=== PATIENT | female | born 1935 | race Caucasian/White ===

== ENCOUNTER 2017-06-27 07:25 | Inpatient (IN) | payer MEDICARE, OTHER ==
[~2017-06-27] VITALS: Ht 172.7 cm; Wt 100.4 kg
[~2017-06-27 07:25] MED LIST: ALBUTEROL0.63 MG/3 IH; AMARYL2 MG PO; AMLODIPINE BESYL5 MG MT; BENZONATATE100 MG; BENZONATATE100 MG PO; CORDARONE200 MG PO; DIOVAN HCT 3201 EACH; DIOVAN80 MG PO; GLIMEPIRIDE4 MG; JANUVIA100 MG PO; LASIX40 MG PO; LEVOFLOXACIN750 MG; LEVOTHYROXINE150 MCG; LIPITOR20 MG PO; METOPROLOL SUC200 MG; PRAVASTATIN SOD40 MG; PREDNISONE10 M1; RANITIDINE HCL150 M1; TOPROL XL50 MG PO; TRAMADOL-ACETAMI1 EA PO; XARELTO10 MG PO
[2017-06-27] MEDS ORDERED: PANTOPRAZOLE 40 MG 10ML VIAL IV STA (07:33)
[2017-06-27] MEDS ORDERED: SODIUM CHLORIDE 0.9% 1000ML 1,000 ML IV STA (07:33)
[2017-06-27] MEDS ORDERED: DEXTROSE 50% SYRINGE 50 ML IV PRN (07:45)
[2017-06-27] MEDS ORDERED: ONDANSETRON HCL INJ 2 MG/ML VIAL IV PRN (07:45)
[2017-06-27] MEDS ORDERED: MORPHINE SULFATE 2 MG/ML SYR IV PRN (07:45)
[2017-06-27] MEDS ORDERED: WARFARIN SODIUM1 MG PO ×2 (07:49)
[2017-06-27] MEDS ORDERED: HYDRALAZINE HCL25 MG PO (07:54)
[2017-06-27] MEDS ORDERED: CENTRUM SILVER1 EAC3 PEG (07:54)
[2017-06-27] MEDS ORDERED: CARVEDILOL3.125 MG PO (07:54)
[2017-06-27] MEDS ORDERED: POTASSIUM CHLO10 ME1 PO (07:54)
[2017-06-27] MEDS ORDERED: VITAMIN D32000 UNIT PO (07:54)
--- NOTE | 2017-06-27 08:10 | Diagnostic Imaging Report ---
EXAMINATION: CHEST SINGLE (PORTABLE) INDICATION: Possible fall. Chest pain. COMPARISON: Chest x-ray 06/25/2014 FINDINGS: AP view TUBES and LINES: None. LUNGS: Lungs are well inflated. here is perihilar interstitial opacities, consistent with interstitial edema. Enlarged main pulmonary arteries. PLEURA: No pleural effusion or pneumothorax. HEART AND MEDIASTINUM: The cardiomediastinal silhouette is unremarkable. BONES AND SOFT TISSUES: No acute osseous lesion. Soft tissues are unremarkable. UPPER ABDOMEN: No free air under the diaphragm. IMPRESSION: Interstitial edema. Signed by: Dr. Anirudh Gustafson M.D. on 06/27/2017 8:06 AM
--- NOTE | 2017-06-27 08:10 | Diagnostic Imaging Report ---
KNEE LEFT THREE VIEWS - 3 views HISTORY: Pain. Possible fall COMPARISON: None available. FINDINGS: Bones: No acute displaced fracture. Osseous alignment is within normal limits. Joints: Severe tricompartmental degenerative changes with complete loss of joint space. Soft tissues: The soft tissues appear unremarkable. 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 No discrete fractures. Signed by: Dr. Anirudh Gustafson M.D. on 06/27/2017 8:07 AM
[2017-06-27] MEDS ORDERED: CEFTRIAXONE SOD 1 GM VIAL IM ONE (08:15)
[2017-06-27 08:32] LABS: BASOPHILS % 0.4 % (0.0-1.0); EOSINOPHILS # (AUTO) 0.1 (0.0-0.4); EOSINOPHILS % 1.3 % (0.0-6.0); HEMATOCRIT 28.7 % (34.2-44.1); HEMOGLOBIN 9.1 g/dL (12.0-16.0); LYMPHOCYTES # (AUTO) 0.8 (1.0-3.2); LYMPHOCYTES % 9.2 % (18.0-39.1); MEAN CORPUSCULAR HEMOGLOBIN 29.5 pg (28-32); MEAN CORPUSCULAR HGB CONC 31.7 g/dL (31-35); MEAN CORPUSCULAR VOLUME 93.2 fL (81-99); MONOCYTES # (AUTO) 0.5 (0.2-0.8); MONOCYTES % 5.7 % (4.4-11.3); NEUTROPHILS # (AUTO) 7.5 (2.1-6.9); NEUTROPHILS % 82.7 % (38.7-80.0); PLATELET COUNT 435 x10e3/uL (140-360); RED BLOOD COUNT 3.08 x10e6/uL (3.6-5.1); RED CELL DISTRIBUTION WIDTH 16.3 % (11.7-14.4)
[2017-06-27 08:34] LABS: BILIRUBIN,URINE 1+ (NEGATIVE); KETONES,URINE NEGATIVE (NEGATIVE); LEUKOCYTE ESTERASE ,URINE TRACE (NEGATIVE); URINE UROBILINOGEN 1 mg/dL (0.2 - 1)
[2017-06-27 08:35] LABS: CLARITY,URINE HAZY (CLEAR); COLOR,URINE YELLOW (YELLOW); NITRITE,URINE POSITIVE (NEGATIVE); PROTEIN,URINE DIPSTICK 2+ (NEGATIVE)
[2017-06-27 08:46] LABS: INR 2.98; PROTHROMBIN TIME 29.1 seconds (11.9-14.5)
[2017-06-27 08:50] LABS: BACTERIA,URINE MANY /HPF; EPITHELIAL CELLS,URINE RARE /LPF; RBC,URINE 0-5 /HPF (0-5)
[2017-06-27 08:55] LABS: ALANINE AMINOTRANSFERASE 31 IU/L (0-55); ALBUMIN 2.8 g/dL (3.5-5.0); ALBUMIN/GLOBULIN RATIO 0.7 (0.8-2.0); ALKALINE PHOSPHATASE 87 IU/L (40-150); ANION GAP 13.8 mmol/L (8-16); BLOOD UREA NITROGEN 14 mg/dL (7-26); BUN/CREATININE RATIO 11 (6-25); CALCIUM 8.4 mg/dL (8.4-10.2); CARBON DIOXIDE 27 mmol/L (22-29); CHLORIDE 101 mmol/L (98-107); CREATINE KINASE 171 IU/L (29-168); CREATININE, SERUM 1.28 mg/dL (0.57-1.11); EST GLOMERULAR FILTRATION RATE 40 ML/MIN (60-); MAGNESIUM 1.9 MG/DL (1.3-2.1); POTASSIUM 3.8 mmol/L (3.5-5.1); SODIUM 138 mmol/L (136-145)
[2017-06-27 08:56] LABS: LIPASE < 4 U/L (8-78)
[2017-06-27 08:57] LABS: GLUCOSE 39 mg/dL (74-118)
[2017-06-27] MEDS ORDERED: PANTOPRAZOLE 40 MG 10ML VIAL IV SCH (09:00)
[2017-06-27 09:14] LABS: THYROID STIMULATING HORMONE 1.852 uIU/mL (0.350-4.940)
--- OUTSIDE RECORDS SUMMARY | 2017-06-27 09:28 | XMS REPORT ---
Author Author [facility] Address Unknown Phone Unavailable Care Team Providers Care Mathematician Name Role Phone WAI WATT Unavailable Unavailable Problems This patient has no known problems. Allergies, Adverse Reactions, Alerts This patient has no known allergies or adverse reactions. Medications This patient has no known medications. Results Test Description Test Time Test Comments Text Results Atomic Results Result Comments CHEST SINGLE (PORTABLE) [place] [address] Patient Name: DOUG GRIMES MR #: [id number] : 1935 Age/Sex: 82/F Req #: [id number] Adm Physician: Ordered by: WAI WATT MD, MD Report #: [id number] Location: ER Room/Bed: Procedure: [id number] DX/CHEST SINGLE (PORTABLE) Exam Date: Exam Time: REPORT STATUS: Signed EXAMINATION: CHEST SINGLE (PORTABLE) INDICATION: Possible fall. Chest pain. COMPARISON: Chest x-ray 06/25/2014 FINDINGS: AP view TUBES and LINES: None. LUNGS: Lungs are well inflated. here is perihilar interstitial opacities, consistent with interstitial edema. Enlarged main pulmonary arteries. PLEURA: No pleural effusion or pneumothorax. HEART AND MEDIASTINUM: The cardiomediastinal silhouette is unremarkable. BONES AND SOFT TISSUES: No acute osseous lesion. Soft tissues are unremarkable. UPPER ABDOMEN: No free air under the diaphragm. IMPRESSION: Interstitial edema. Signed by: Dr. Warren Gustafson M.D. on 2017 8:06 AM Dictated By: WARREN GUSTAFSON MD 5 Transcribed By: ETIENNE on 06/27/17805 COPY TO: WAI WATT KNEE LEFT THREE VIEWS [place] [address] Patient Name: DOUG GRIMES MR #: [id number] : 1935 Age/Sex: 82/F Req #: [id number] Adm Physician: Ordered by: WAI WATT MD, MD Report #: [id number] Location: ER Room/Bed: Procedure: [id number] DX/KNEE LEFT THREE VIEWS Exam Date: Exam Time: REPORT STATUS: Signed KNEE LEFT THREE VIEWS - 3 views HISTORY: Pain. Possible fall COMPARISON: None available. FINDINGS: Bones: No acute displaced fracture. Osseous alignment is within normal limits. Joints: Severe tricompartmental degenerative changes with complete loss of joint space. Soft tissues: The soft tissues appear unremarkable. 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 No discrete fractures. Signed by: Dr. Warren Gustafson M.D. on 06/27/2017 8:07 AM Dictated By: WARREN GUSTAFSON MD 6 Transcribed By: ETIENNE on 06/27/17806 COPY TO: WAI WATT
--- NOTE | 2017-06-27 09:54 | Diagnostic Imaging Report ---
Exams: Head and cervical spine CTs without IV contrast History: Trauma, fall Comparison studies: None Technique: Axial images were obtained from the brain and cervical spine. Coronal and sagittal images reconstructed from the axial data. Intravenous contrast: None Findings: Head CT: Scalp: No abnormalities. Bones: No fractures, blastic or lytic lesions. Extra-axial spaces: No masses. No fluid collections. Brain sulci: Mildly prominent. Ventricles: Mild compensatory dilatation. No hydrocephalus. Parenchyma: No mass, acute hemorrhage or acute cortical vascular insults. There is a chronic cortical-subcortical insult with encephalomalacia and gliosis along the subcentral gyrus (inferior junction of pre and postcentral gyrus) which extends to the supramarginal gyrus of the left inferior parietal lobule in the left MCA territory. Additional cortical-subcortical insult in the left superior parietal lobule in the distal left MCA territory. Ill-defined hypodensities in the supratentorial white matter are nonspecific most compatible with chronic small vessel ischemic changes. Sellar/suprasellar region: No abnormalities. Craniocervical junction: The foramen magnum is patent. No Chiari one malformation. Cervical spine CT: Fractures: None. Soft tissues: No gross acute abnormalities. Atlantoaxial articulation: Intact. Alignment: Straightened cervical curvature may be positional. Approximately 2 mm anterolisthesis of C4 on C5 is most likely degenerative in etiology. No acute subluxations. Cervicomedullary junction: No abnormalities. The foramen magnum is patent. Vertebrae: No infection or neoplasm. Degenerative changes: Moderate degenerative changes at the atlantodental joint. Mildly degenerated disks from C2 to C6 and at C7-T1. Moderately degenerated disc at C6-C7. Disc osteophyte complexes at C5-C6 and at C6-C7 indent the thecal sac but do not result in significant canal stenosis. Multilevel advanced facet arthrosis. Multilevel foraminal stenosis due to uncovertebral and facet arthrosis (mild left at C2-C3, moderate bilaterally at C3-C4, at C5-C6 and at C6-C7 is present. Moderate bilateral C4-C5 foraminal stenosis due to listhesis, uncovertebral arthrosis and moderate bilateral facet arthrosis. Incidental findings: Calcified atherosclerosis in the carotid siphons, intradural vertebral arteries and at the cervical carotid bulbs. Multiple surgical clips in the thyroid bed presumably related to thyroidectomy. Nonspecific partially calcified small nodule in the right thyroid bed may represent residual thyroid tissue/nodule. Nonspecific 2 mm right upper lobe subpleural nodule. IMPRESSION: Head CT: 1. No acute abnormalities. 2. Mild generalized volume loss. 3. Moderate chronic small vessel ischemic changes. 4. Chronic left subcortical subcentral/inferior parietal and left superior parietal insults. Cervical spine CT: 1. No cervical spine fracture or acute subluxation. 2. Multilevel degenerative changes as described. 3. Cannot likely evaluate ligament, spinal cord and or vascular abnormalities on the basis of this examination. Signed by: Dr. Sami Rene M.D. on 06/27/2017 9:51 AM
--- NOTE | 2017-06-27 10:02 | Diagnostic Imaging Report ---
EXAM: CT Chest, Abdomen and Pelvis WITHOUT contrast INDICATION: \S\FALL COMPARISON: None. TECHNIQUE: Chest, abdomen and pelvis were scanned utilizing a multidetector helical scanner from the lung apex to the pubic symphysis without administration of IV contrast. Absence of intravenous contrast decreases sensitivity for detection of focal lesions and vascular pathology. Coronal and sagittal reformations were obtained. Routine protocol was performed. IV CONTRAST: None ORAL CONTRAST: Water COMPLICATIONS: None RADIATION DOSE: Total DLP: 1000.3 mGy*cm Estimated effective dose: (DLP x 0.015 x size factor) mSv CTDIvol has been reviewed. It is below the limits set by the Radiation Protocol Committee (RPC). FINDINGS: LINES and TUBES: None. LUNGS AND AIRWAYS: Mild interlobular septal thickening predominantly in the lung apices. Patchy groundglass opacities which may represent actual groundglass opacities versus air trapping. There is likely a component of air trapping in the lower lobes. Mild bronchial wall thickening. Multifocal scattered tiny pulmonary nodules and groundglass nodules in bilateral lungs predominantly in the upper lobes. Focal atelectasis in the left lower lobe (series 4 image 68) PLEURA: Tiny left pleural effusion. HEART AND MEDIASTINUM: The thyroid gland is normal. No mediastinal, hilar or axillary lymphadenopathy. The heart is normal in size. There is no pericardial effusion. There are significant atherosclerotic calcifications in the aorta and coronary arteries. HEPATOBILIARY: No focal hepatic lesions. No biliary ductal dilation. GALLBLADDER: Layering sludge No wall thickening. SPLEEN: No splenomegaly. Calcified granuloma in the spleen. PANCREAS: No focal masses or ductal dilatation. ADRENALS: No adrenal nodules KIDNEYS/URETERS: Atrophy of bilateral kidneys with vascular ossifications. No hydronephrosis. No cystic or solid mass lesions. No stones. GI TRACT: No abnormal distention, wall thickening, or evidence of bowel obstruction. Tiny sliding hiatal hernia. Appendix is normal. PELVIC ORGANS/BLADDER: Rivera catheter is in place. Bladder is decompressed with air related to Rivera catheter placement. Uterus is absent. Both ovaries are not visualized. LYMPH NODES: No lymphadenopathy. VESSELS: There is severe atherosclerotic disease in the aorta and major arterial branches. PERITONEUM / RETROPERITONEUM: No free air or fluid. BONES: Severe degenerative changes in the lumbar spine. * Inferior wedging of T12 vertebral body. * Age indeterminate, likely more acute compression deformity of L1 vertebral body. * Severe disc space narrowing at L2-L3. * Compression deformity in the superior endplate of L4. * Trace grade 1 anterolisthesis of L5 on S1 secondary to facet arthropathy. SOFT TISSUES: There is a fat containing umbilical hernia. Soft tissue density in the posterior subcutaneous tissue abutting the epidermis, consistent with epidermal inclusion cyst. A 0.7 cm (image 27), and 1.0 cm (image 28). IMPRESSION: 1. Multifocal nodules and groundglass nodules in lungs, likely pneumonia. 2. Age-indeterminate, likely more acute compression deformity of L1 body. MRI lumbar spine without contrast can be performed to evaluate for acuity. 3. Gallbladder stones/sludge. No acute cholecystitis. 4. Tiny left pleural effusion. Signed by: Dr. Anirudh Gustafson M.D. on 06/27/2017 9:59 AM
[2017-06-27] MEDS ORDERED: CEFTRIAXONE SOD 1 GM VIAL IM SCH (11:00)
[2017-06-27] MEDS: INSULIN LISPRO 100 UNIT/1 ML 3ML VIAL SQ SCH ×3 (11:30→20:41)
[2017-06-27 11:39] VITALS: BP 147/62
[2017-06-27] MEDS ORDERED: AZITHROMYCIN 500MG/NS 250 ML 250 ML IV SCH ×2 (12:30→14:30)
[2017-06-27 13:27] VITALS: BP 147/62
[2017-06-27 13:35] VITALS: BP 147/62
[2017-06-27] MEDS: CEFTRIAXONE SOD 1 GM VIAL IV SCH (15:00)
[2017-06-27] MEDS: TRAMADOL HCL 50 MG TAB PO PRN ×2 (15:01→21:09)
[2017-06-27 15:39] VITALS: BP 143/65
[2017-06-27 16:20] LABS: CREATINE KINASE MB 12.3 ng/mL (0-5.0)
[2017-06-27] MEDS: HYDRALAZINE HCL 25 MG TAB PO SCH ×2 (18:50→21:09)
[2017-06-27] MEDS: DOXYCYCLINE HYCLATE TABLET 100 MG TAB PO SCH (18:51)
[2017-06-27] MEDS: CARVEDILOL 12.5 MG TAB PO SCH (18:51)
[2017-06-27 20:00] VITALS: BP 125/65
[2017-06-27] MEDS ORDERED: WARFARIN SOD 1 MG TAB PO SCH (21:00)
[2017-06-27 21:03] VITALS: BP 125/65
[2017-06-27] MEDS: ATORVASTATIN 40 MG TAB PO SCH (21:09)
[2017-06-27] MEDS: MORPHINE SULFATE 2 MG/ML SYR IV PRN (23:27)
[2017-06-28] VITALS (7 sets, daily range): BP systolic 118–149; BP diastolic 58–69
[2017-06-28 01:49] LABS: CREATINE KINASE MB 6.2 ng/mL (0-5.0)
[2017-06-28] MEDS: TRAMADOL HCL 50 MG TAB PO PRN ×3 (03:22→23:29)
[2017-06-28] MEDS: MORPHINE SULFATE 2 MG/ML SYR IV PRN ×2 (06:12→11:30)
[2017-06-28] MEDS: INSULIN LISPRO 100 UNIT/1 ML 3ML VIAL SQ SCH ×4 (07:30→21:29)
[2017-06-28 07:34] LABS: BASOPHILS # (AUTO) 0.1 (0.0-0.1); BASOPHILS % 0.9 % (0.0-1.0); EOSINOPHILS # (AUTO) 0.3 (0.0-0.4); EOSINOPHILS % 3.3 % (0.0-6.0); HEMATOCRIT 27.7 % (34.2-44.1); HEMOGLOBIN 8.4 g/dL (12.0-16.0); LYMPHOCYTES # (AUTO) 2.1 (1.0-3.2); LYMPHOCYTES % 27.2 % (18.0-39.1); MEAN CORPUSCULAR HEMOGLOBIN 28.9 pg (28-32); MEAN CORPUSCULAR HGB CONC 30.3 g/dL (31-35); MEAN CORPUSCULAR VOLUME 95.2 fL (81-99); MONOCYTES # (AUTO) 0.9 (0.2-0.8); MONOCYTES % 11.2 % (4.4-11.3); NEUTROPHILS # (AUTO) 4.4 (2.1-6.9); PLATELET COUNT 396 x10e3/uL (140-360); RED BLOOD COUNT 2.91 x10e6/uL (3.6-5.1); RED CELL DISTRIBUTION WIDTH 16.8 % (11.7-14.4)
[2017-06-28 07:56] LABS: INR 3.19; PROTHROMBIN TIME 30.7 seconds (11.9-14.5)
[2017-06-28 07:57] LABS: PARTIAL THROMBOPLASTIN TIME 66.2 seconds (23.8-35.5)
[2017-06-28 08:09] LABS: ALBUMIN 2.3 g/dL (3.5-5.0); ALBUMIN/GLOBULIN RATIO 0.7 (0.8-2.0); ANION GAP 11.7 mmol/L (8-16); CALCIUM 7.9 mg/dL (8.4-10.2); CHOL/HDL RATIO 2.7 (3.0-3.6); CREATININE, SERUM 1.29 mg/dL (0.57-1.11); MAGNESIUM 1.4 MG/DL (1.3-2.1); POTASSIUM 3.7 mmol/L (3.5-5.1)
[2017-06-28] MEDS: LEVOTHYROXINE SODIUM 100 MCG TAB PO SCH (08:23)
[2017-06-28] MEDS: HYDRALAZINE HCL 25 MG TAB PO SCH ×3 (08:25→21:23)
[2017-06-28] MEDS: AMIODARONE HCL 200 MG TAB PO SCH (08:25)
[2017-06-28] MEDS: CARVEDILOL 12.5 MG TAB PO SCH ×2 (08:25→16:34)
[2017-06-28] MEDS: DOXYCYCLINE HYCLATE TABLET 100 MG TAB PO SCH ×2 (08:25→16:33)
[2017-06-28] MEDS ORDERED: POTASSIUM CHLORIDE 20 MEQ TAB CR PO SCH (13:41)
[2017-06-28] MEDS: CEFTRIAXONE SOD 1 GM VIAL IV SCH (14:29)
[2017-06-28] MEDS: FUROSEMIDE INJ 10 MG/ML 4 ML VIAL IV SCH (14:29)
[2017-06-28] MEDS: ATORVASTATIN 40 MG TAB PO SCH (21:23)
[2017-06-29] MEDS: MORPHINE SULFATE 2 MG/ML SYR IV PRN ×2 (05:41→22:38)
[2017-06-29 06:39] LABS: BASOPHILS # (AUTO) 0.1 (0.0-0.1); BASOPHILS % 0.7 % (0.0-1.0); EOSINOPHILS # (AUTO) 0.3 (0.0-0.4); EOSINOPHILS % 2.9 % (0.0-6.0); HEMATOCRIT 26.5 % (34.2-44.1); HEMOGLOBIN 8.2 g/dL (12.0-16.0); LYMPHOCYTES # (AUTO) 1.7 (1.0-3.2); LYMPHOCYTES % 19.3 % (18.0-39.1); MEAN CORPUSCULAR HEMOGLOBIN 29.2 pg (28-32); MEAN CORPUSCULAR HGB CONC 30.9 g/dL (31-35); MEAN CORPUSCULAR VOLUME 94.3 fL (81-99); MONOCYTES # (AUTO) 0.8 (0.2-0.8); MONOCYTES % 9.3 % (4.4-11.3); NEUTROPHILS # (AUTO) 5.8 (2.1-6.9); NEUTROPHILS % 67.2 % (38.7-80.0); PLATELET COUNT 371 x10e3/uL (140-360); RED BLOOD COUNT 2.81 x10e6/uL (3.6-5.1); RED CELL DISTRIBUTION WIDTH 16.8 % (11.7-14.4)
[2017-06-29 06:45] LABS: INR 2.1; PROTHROMBIN TIME 22.1 seconds (11.9-14.5)
[2017-06-29 07:06] LABS: ANION GAP 12.2 mmol/L (8-16); CALCIUM 7.9 mg/dL (8.4-10.2); CREATININE, SERUM 1.49 mg/dL (0.57-1.11); POTASSIUM 4.2 mmol/L (3.5-5.1)
[2017-06-29] MEDS: INSULIN LISPRO 100 UNIT/1 ML 3ML VIAL SQ SCH ×4 (07:30→20:02)
[2017-06-29 07:41] VITALS: BP 163/70
[2017-06-29] MEDS: LEVOTHYROXINE SODIUM 100 MCG TAB PO SCH (09:17)
[2017-06-29] MEDS: FUROSEMIDE INJ 10 MG/ML 4 ML VIAL IV SCH (09:17)
[2017-06-29] MEDS: AMIODARONE HCL 200 MG TAB PO SCH (09:18)
[2017-06-29] MEDS: DOXYCYCLINE HYCLATE TABLET 100 MG TAB PO SCH ×2 (09:19→17:55)
[2017-06-29] MEDS: HYDRALAZINE HCL 25 MG TAB PO SCH ×3 (09:29→20:03)
[2017-06-29] MEDS: VALSARTAN 80 MG TAB PO SCH (09:30)
[2017-06-29] MEDS: CARVEDILOL 12.5 MG TAB PO SCH ×2 (09:30→17:55)
[2017-06-29 11:26] VITALS: BP 153/65
--- NOTE | 2017-06-29 11:37 | Consultation ---
DATE OF CONSULTATION: June 28, 2017 ELECTROPHYSIOLOGY CONSULT REFERRING PHYSICIAN: Dr. Graff REASON FOR CONSULTATION: Syncope, sick sinus syndrome. HISTORY OF PRESENT ILLNESS: This is an 82-year-old woman with history of hypertension and history of chronic cardiomyopathy with ejection fraction of 25%. The patient states she has been cathed in the past and was found with no blockages. No records are available at this time. She has had paroxysmal atrial fibrillation and states she feels heart racing episodes when the heart rate goes up to 120s and 130s beats per minute. She has been on beta radames for this. However, she recently started having syncope. She had 3 syncopal episodes over the last 3 weeks. She had pretty significant hit on her head with soft-tissue injury at this time. She states she was at home when all of a sudden she blacked out. The next thing she remembers was getting up from the floor. There were no preceding symptoms. The patient has noticed the heart rate sometimes going down to the 40s and 50s. On admission, the patient was in atrial fibrillation with rapid ventricular response. However, she converted to sinus and has been having episodes of sinus bradycardia associated with some dizziness. No recurrence of syncope during the hospital stay. The patient denies chest pain. She has been taking Coumadin for years. REVIEW OF SYSTEMS CONSTITUTIONAL: Negative. CARDIOVASCULAR: As per HPI. RESPIRATORY: Negative. ABDOMEN: Negative. GASTROINTESTINAL: Negative. GENITOURINARY: Negative. MUSCULOSKELETAL: Negative. EYES: Negative. ENT: Negative. ALLERGY AND IMMUNOLOGY: Negative. PSYCHIATRY: Negative. PAST MEDICAL HISTORY: Atrial fibrillation and cardiomyopathy. SURGICAL HISTORY: Negative. FAMILY HISTORY: No premature coronary artery disease. SOCIAL HISTORY: No smoking, alcohol or illicit drugs. PHYSICAL EXAMINATION VITAL SIGNS: Blood pressure 120s/60s, pulse 50, respirations 20, O2 sat 98%. GENERAL: No acute distress. HEENT: Moist mucous membranes. CARDIOVASCULAR: Regular-regular. RESPIRATORY: Clear to auscultation. GASTROINTESTINAL: Abdomen is soft, nontender. EXTREMITIES: 2+ distal pulses. NEUROLOGIC: No focal deficit. SKIN: Some bruises on her face. PSYCHIATRY: Normal thought process. EKG: Sinus bradycardia, 1st-degree AV block, intraventricular conduction defect. IMPRESSION 1. Sick sinus syndrome, highly symptomatic. She has had syncope that appears to be secondary to primary arrhythmia, most likely some bradycardia or sinus pauses given the history and current findings with some episodes of bradycardia. 2. Paroxysmal atrial fibrillation. 3. History of cardiomyopathy. RECOMMENDATIONS 1. I had a long discussion with the patient. She has a strong indication for pacing, given her sick sinus syndrome difficult to manage, and she goes tachycardic from the atrial fibrillation and then bradycardic. There are no reversible causes, and pacing is indicated. Also, due to her cardiomyopathy, will await official result from the repeat echocardiogram. In case the ejection fraction is low, then she will meet criteria for ICD. If the ejection fraction has normalized, then it will be a pacemaker. 2. The procedure was explained in detail with benefits and risks. The patient voices an understanding and wishes to proceed either way. 3. We will plan for a dual-chamber pacemaker if the ejection fraction is greater than 35% or dual-chamber ICD if the ejection fraction is less than 35%. 4. Will wait and follow the INR to come down. Will hold warfarin. Thank you for letting us participate in Ms. [facility]. Job#: [id number]
[2017-06-29] MEDS: TRAMADOL HCL 50 MG TAB PO PRN ×2 (12:45→19:47)
[2017-06-29 15:28] VITALS: BP 158/67
[2017-06-29] MEDS: CEFTRIAXONE SOD 1 GM VIAL IV SCH (15:53)
[2017-06-29 18:43] VITALS: BP 158/67
--- NOTE | 2017-06-29 19:04 | Consultation ---
DATE OF CONSULTATION: June 27, 2017 CARDIOLOGY CONSULTATION REASON FOR CONSULTATION: Syncope, collapse with injury. HISTORY OF PRESENT ILLNESS: Ms. Yoon is an 82-year-old lady with past medical history of hypertension; type 2 diabetes; hypercholesterolemia; history of atrial fibrillation, first diagnosed 3 years ago, on chronic anticoagulation therapy with Coumadin and also known systolic heart failure with EF of about 20% to 25% on previous echocardiogram in this institution 3 years ago. Patient does see Dr. Zhao as her primary group exercise class instructor, however, she is not attune to what her medical problems are per se. She gets a checkup every 6 months where he runs echocardiogram, stress test, and so forth with last ischemic evaluation about a year and a half ago and nothing was said, so she assumed that everything was okay. In terms of her heart function, she is unaware that she has had weak heart function in the past. She has never been discussed for device therapy. She had 3 passing out episodes in the past 2 months. First episode was 8 weeks ago where she collapsed all of a sudden without any prodromal warning. She found herself on the floor injured with bruising, but luckily no breaks. She had a second episode 4 days ago where she landed on her left side and daughter came over help her up. Her last episode was yesterday again without any prodrome, however, this time around was unable to get up. ER services came to help the patient out. Patient denies any subjective palpitations. She does not feel her onset/offset of atrial fibrillation. I am amusing that her atrial fibrillation is paroxysmal because she is on rhythm control strategy with amiodarone. Patient denies any chest pain or discomfort. She reports chronic class 3 to 4 dyspnea and is not very active. She utilizes a walking aid for the past 6 months with a walker on account of severe bilateral ankle arthritis. She has had falls before, but this is quite different as she completely looses consciousness and awakes on the floor with injury. Currently, she does report some abrasions over the left side of her body as well as her face from her most recent fall. We had a long discussion today in terms of differential diagnosis. PAST MEDICAL HISTORY: 1. Hypertension, essential. 2. Type 2 diabetes. 3. Hypercholesterolemia. 4. Atrial fibrillation, diagnosed at least 3 years ago, on chronic anticoagulation therapy. 5. Systolic heart failure with EF of about 20% to 25% on last echocardiogram 3 years ago in this institution and regimen suggests CHF systolic regimen. 6. Hypothyroidism/goiter with history of thyroidectomy. 7. Chronic low back pain with prior history of compression fractures. 8. Osteoporosis. PAST SURGICAL HISTORY: 1. History of thyroidectomy 7 years ago. 2. History of hysterectomy and bladder suspension surgery 15 years ago. FAMILY HISTORY: Mother in her late 70s due to some sort of leukemia. Father at the age of 39 from a plane crash. Has diabetes running in her family, but denies any family history of coronary artery disease. SOCIAL HISTORY: She is a former smoker, quit at the age of 41. Denies any alcohol or illicit drug use. ALLERGIES: INCLUDE CODEINE AND PENICILLIN. HOME MEDICATIONS: Includes: 1. Amiodarone 200 mg daily. 2. Norvasc 5 mg daily. 3. Lipitor 40 mg nightly. 4. Coreg 6.25 mg b.i.d. 5. Lasix 40 mg daily. 6. Glimepiride 4 mg daily. 7. Hydralazine 25 mg t.i.d. 8. Synthroid 150 mcg daily. 9. Vitamin D tablet daily. 10. Multivitamin tablet daily. 11. Potassium 10 mEq daily. 12. Diovan 80 mg daily. 13. Coumadin 2.5 mg daily. REVIEW OF SYSTEMS: GENERAL: Denies any fevers, chills, or any weight changes. HEENT: No headaches, visual complaints, sore throat, stuffy nose. She does have some bruising on her face. RESPIRATORY: Denies any pleuritic chest pain. Has exertional dyspnea that is chronic, class 3 to 4. CARDIOVASCULAR: As per HPI. GI: Denies any abdominal pain, bright red blood per rectum, melena, hematemesis. : Denies any dysuria. Does have urinary frequency and slight incontinence. MUSCULOSKELETAL: Positive for chronic low back pain and stiff ankles and arthritis in her knees. ENDOCRINE: Positive for diabetes and hypothyroidism. NEUROLOGIC: Denies any focal weakness on 1 side of her body or another, but has had the falls as noted above. Has some peripheral neuropathy symptoms. Review of systems negative otherwise mentioned. PHYSICAL EXAMINATION: VITAL SIGNS: Height of 68 inches, weight of 221 pounds, BMI is 33.6. Temperature of 98.0, pulse of 116, respiratory rate 20, blood pressure 143/65, O2 sat 95% on room air. GENERAL: This is a well-nourished, obese lady, who is currently in no apparent distress. HEENT: Pupils are equal, round, and reactive to light. Extraocular movements are intact. Oropharynx is clear. There is some bruising on the right side of her face. NECK: No elevation of jugular venous pulsation. No carotid bruits. CARDIOVASCULAR: Irregularly irregular rate and rhythm. Normal S1 and S2. Soft 1/6 systolic murmur at the left lower sternal border. LUNGS: Showed decreased bibasilar breath sounds and fair lung entry and some trivial crackles, scattered. ABDOMEN: Soft, nontender, obese. Normoactive bowel sounds. There are old surgical scars. BACK: No costovertebral angle tenderness. EXTREMITIES: Warm with extensive left lateral thigh bruising, 1 to 2+ bilateral pitting edema up to the knees and absent pedal pulses. NEUROLOGIC: Cranial nerves II through XII are intact. Strength seems to be preserved in all 4 extremities. LABS: White count 9.1, hemoglobin 9.1, hematocrit 28.7, platelets of 435,000. Sodium 138, potassium 3.8, chloride 101, bicarb 27, BUN 14, creatinine 1.3, glucose of 214. AST 50, ALT 31, alk phos 87, total protein 7.0, albumin of 2.8. BNP is 363. Troponin I from 0.014 to 0.018. INR is 2.98. UA showed 6 to 10 white cells. Chest x-ray showed some mild interstitial edema. Left knee x-rays showed DJD changes, but no fractures. Chest CT showed probably some pulmonary edema type changes. There is a L1 compression fracture, gallbladder stones and sludge, but no acute cholecystitis. Cervical/C-spine showed DJD throughout. Brain CT showed microvascular ischemic changes and chronic left subcortical, subcentral, inferior parietal, left superior parietal insults. Carotid duplex reviewed showing bilateral 16% to 49% carotid artery stenosis. EKG revealed normal sinus rhythm, first-degree AV block, and nonspecific ST-T-wave changes. DIAGNOSES: 1. Repetitive syncope and collapse without any prodrome in a lady with paroxysmal atrial fibrillation, highly suspicious of conduction system disease type process given symptom complex. 2. Kvqyi-kh-uakaurr decompensated systolic heart failure with mild volume overload. 3. Hypertension. 4. Hypercholesterolemia. 5. Type 2 diabetes. 6. Former smoker. 7. Obesity. 8. Injury, soft tissue, diffuse. 9. High probability of coronary artery disease, however, has had negative ischemic workup one and a half years ago. 10. Lumbar spine compression fracture. PLAN/RECOMMENDATIONS: 1. From a cardiovascular standpoint, we have held her anticoagulation therapy to let her INR go down. 2. In the meantime, will check echocardiogram and look at her left ventricular function. If EF is low, she qualifies for a ICD device, and in light of the syncopal spells would push for a dual-chamber ICD as this would kill 2 birds with 1 stone, 1 ensure that there will be no significant bradyarrhythmias and 2 for prevention for deadly malignant ventricular arrhythmias in a lady with congestive heart failure. 3. Will continue her other cardiac meds with the exception of holding her amlodipine therapy. 4. Will avoid IV fluids. 5. Further plans/recommendations to follow. 6. I have already taken the liberty to contact her EP, in consultation to get his input. 7. Will follow up on echocardiogram that has been ordered, not yet been completed yet. Job#: [id number]
[2017-06-29 20:00] VITALS: BP 140/65
[2017-06-29] MEDS: ATORVASTATIN 40 MG TAB PO SCH (20:03)
[2017-06-30] VITALS (11 sets, daily range): BP systolic 98–186; BP diastolic 58–91
[2017-06-30 06:12] LABS: BASOPHILS # (AUTO) 0.1 (0.0-0.1); BASOPHILS % 0.6 % (0.0-1.0); EOSINOPHILS # (AUTO) 0.3 (0.0-0.4); EOSINOPHILS % 3.5 % (0.0-6.0); HEMATOCRIT 26.3 % (34.2-44.1); HEMOGLOBIN 8.2 g/dL (12.0-16.0); LYMPHOCYTES # (AUTO) 1.7 (1.0-3.2); LYMPHOCYTES % 22.3 % (18.0-39.1); MEAN CORPUSCULAR HEMOGLOBIN 29.5 pg (28-32); MEAN CORPUSCULAR HGB CONC 31.2 g/dL (31-35); MEAN CORPUSCULAR VOLUME 94.6 fL (81-99); MONOCYTES # (AUTO) 0.8 (0.2-0.8); MONOCYTES % 10.8 % (4.4-11.3); NEUTROPHILS # (AUTO) 4.8 (2.1-6.9); NEUTROPHILS % 62.3 % (38.7-80.0); PLATELET COUNT 350 x10e3/uL (140-360); RED BLOOD COUNT 2.78 x10e6/uL (3.6-5.1); RED CELL DISTRIBUTION WIDTH 16.7 % (11.7-14.4)
[2017-06-30 06:29] LABS: INR 1.37; PROTHROMBIN TIME 15.9 seconds (11.9-14.5)
[2017-06-30 06:44] LABS: ANION GAP 11.2 mmol/L (8-16); CREATININE, SERUM 1.28 mg/dL (0.57-1.11); MAGNESIUM 1.5 MG/DL (1.3-2.1); POTASSIUM 4.2 mmol/L (3.5-5.1)
[2017-06-30] MEDS: INSULIN LISPRO 100 UNIT/1 ML 3ML VIAL SQ SCH ×4 (07:30→21:00)
[2017-06-30] MEDS: LEVOTHYROXINE SODIUM 100 MCG TAB PO SCH (07:30)
[2017-06-30] MEDS: FUROSEMIDE INJ 10 MG/ML 4 ML VIAL IV SCH (08:00)
[2017-06-30] MEDS ORDERED: FENTANYL CITRATE/PF 100MCG/2 ML INJ ONE (08:06)
[2017-06-30] MEDS ORDERED: MIDAZOLAM HCL 2 MG/2 ML VIAL ONE (08:06)
[2017-06-30] MEDS ORDERED: BACITRACIN 50,000 UNIT VIAL ONE (08:06)
[2017-06-30] MEDS ORDERED: LIDOCAINE HCL 2% LOCAL 20 ML VIAL ONE (08:07)
[2017-06-30] MEDS ORDERED: SODIUM CHLORIDE 0.9% 500ML 0 ML ONE (08:07)
[2017-06-30] MEDS ORDERED: SODIUM CHLORIDE 0.9% 1000ML 0 ML ONE (08:07)
[2017-06-30] MEDS ORDERED: SODIUM CHLORIDE 0.9% 1000ML 1,000 ML ONE (08:10)
[2017-06-30] MEDS: HYDRALAZINE HCL 25 MG TAB PO SCH (08:18)
[2017-06-30] MEDS: AMIODARONE HCL 200 MG TAB PO SCH (08:19)
[2017-06-30] MEDS: CARVEDILOL 12.5 MG TAB PO SCH ×2 (08:19→17:30)
[2017-06-30] MEDS: VALSARTAN 80 MG TAB PO SCH (08:19)
[2017-06-30] MEDS: DOXYCYCLINE HYCLATE TABLET 100 MG TAB PO SCH ×2 (08:20→17:29)
[2017-06-30] MEDS ORDERED: VANCOMYCIN 1GM/NS 250 ML 250 ML ONE (09:01)
[2017-06-30] MEDS: MORPHINE SULFATE 2 MG/ML SYR IV PRN ×2 (11:34→17:43)
[2017-06-30] MEDS: CEFTRIAXONE SOD 1 GM VIAL IV SCH (17:30)
[2017-06-30] MEDS: ATORVASTATIN 40 MG TAB PO SCH (21:12)
[2017-06-30] MEDS: TRAMADOL HCL 50 MG TAB PO PRN (21:12)
[2017-07-01] VITALS (8 sets, daily range): BP systolic 154–188; BP diastolic 58–85
[2017-07-01 06:43] LABS: INR 1.09; PROTHROMBIN TIME 13.3 seconds (11.9-14.5)
[2017-07-01] MEDS ORDERED: FENTANYL CITRATE/PF 100MCG/2 ML INJ ONE (06:43)
[2017-07-01] MEDS ORDERED: SODIUM CHLORIDE 0.9% 500ML 500 ML ONE (06:44)
[2017-07-01] MEDS ORDERED: VANCOMYCIN 1GM/NS 250 ML 250 ML ONE (06:44)
[2017-07-01] MEDS ORDERED: SODIUM CHLORIDE 0.9% 1000ML 1,000 ML ONE ×2 (06:44→06:55)
[2017-07-01] MEDS ORDERED: LIDOCAINE HCL 2% LOCAL 20 ML VIAL ONE (06:44)
[2017-07-01] MEDS ORDERED: MIDAZOLAM HCL 2 MG/2 ML VIAL ONE (06:44)
[2017-07-01] MEDS ORDERED: BACITRACIN 50,000 UNIT VIAL ONE (06:44)
[2017-07-01] MEDS ORDERED: IOPAMIDOL 300MG/ML 50ML INFUS..BTL IV ONE (06:55)
[2017-07-01] MEDS: INSULIN LISPRO 100 UNIT/1 ML 3ML VIAL SQ SCH ×4 (07:30→21:27)
[2017-07-01] MEDS: CARVEDILOL 12.5 MG TAB PO SCH ×2 (09:00→16:38)
[2017-07-01] MEDS: AMIODARONE HCL 200 MG TAB PO SCH (09:10)
[2017-07-01] MEDS: DOXYCYCLINE HYCLATE TABLET 100 MG TAB PO SCH ×2 (09:10→16:39)
[2017-07-01] MEDS: VALSARTAN 80 MG TAB PO SCH ×2 (09:10→16:38)
[2017-07-01] MEDS: MORPHINE SULFATE 2 MG/ML SYR IV PRN ×2 (09:35→21:27)
--- NOTE | 2017-07-01 09:49 | Diagnostic Imaging Report ---
PROCEDURE: CHEST SINGLE (PORTABLE) COMPARISON: CT chest abdomen and pelvis 06/27/2017. INDICATIONS: POST PACEMAKER FINDINGS: Interval placement of a left subclavian approach dual lead cardiac device with leads projecting over the expected regions of the right atrium and right ventricle. No pneumothorax. Low lung volumes with interstitial edema. Stable cardiomediastinal contour with tortuosity and atherosclerotic calcification of the thoracic aorta. No acute osseous abnormality. Surgical clips project over the lower cervical region. CONCLUSION: Interval placement of a left subclavian implanted cardiac device, positioned as described. No pneumothorax. Low lung volumes with mild interstitial edema. Dictated by: Sami Ackerman M.D. on 07/01/2017 at 9:49 Electronically approved by: Sami Ackerman M.D. on 07/01/2017 at 9:49
[2017-07-01] MEDS: LEVOTHYROXINE SODIUM 100 MCG TAB PO SCH (09:55)
[2017-07-01] MEDS: CEFTRIAXONE SOD 1 GM VIAL IV SCH (16:38)
[2017-07-01] MEDS: WARFARIN SOD 2.5 MG TAB PO SCH (16:38)
[2017-07-01] MEDS: TRAMADOL HCL 50 MG TAB PO PRN ×2 (16:39→22:53)
--- NOTE | 2017-07-01 20:27 | Operative Report ---
DATE OF PROCEDURE: July 01, 2017 REFERRING PHYSICIAN: Dr. Graff. PREPROCEDURE DIAGNOSES 1. Sick sinus syndrome. 2. Symptomatic bradycardia with history of syncope, no reversible causes. 3. History of paroxysmal nocturnal dyspnea. 4. Paroxysmal atrial fibrillation with rapid ventricular response. POSTPROCEDURE DIAGNOSES 1. Sick sinus syndrome. 2. Symptomatic bradycardia with history of syncope, no reversible causes. 3. History of paroxysmal nocturnal dyspnea. 4. Paroxysmal atrial fibrillation with rapid ventricular response. ESTIMATED BLOOD LOSS: 5 mL. COMPLICATIONS: None. PROCEDURES PERFORMED 1. Dual-chamber pacemaker placement. 2. Moderate sedation. Moderate conscious sedation was provided under my direct supervision by a sedation-trained nurse. Sedation time approximate time 30 minutes with Versed and Fentanyl. There were no complications. See sedation form for details. DESCRIPTION OF PROCEDURE: After informed consent was obtained, patient was brought to the electrophysiology laboratory in a fasting, nonsedated state. Area over her chest was prepped and draped in the usual sterile fashion. Moderate sedation and prophylactic antibiotic were given. Lidocaine 1% was used as local anesthetic and a 3-cm skin incision was made in the left subclavicular area. Electrocautery, sharp, and blunt dissection were used to reach the muscular fascia and the pocket was created for eventual implantation of the device. Vascular access was obtained times 2 in the left axillary vein using the modified Seldinger technique under fluoroscopic guidance. Two 6-Faroese sheaths were placed. The ventricular lead advanced to the RV apex. R wave 11, pacing 0.6 at 0.5, impedance 680. The atrial lead to the right atrial appendage. P-wave 1.6, pacing 2.8 at 0.5. Impedance 700. The 2 sheaths were removed from the body. The leads were secured to the fascia using 0 silk. The pocket was irrigated with antibiotic solution using a pulse claim rep. Hemostasis was meticulous. Leads were connected to the device and the entire pacemaker system placed in the pocket. The incision was closed using Vicryl and Dermabond. The patient tolerated the procedure well. Procedure was deemed complete. SUMMARY OF HARDWARE IMPLANTED 1. The new pacemaker is [employer], model #L311, [id number]. 2. The atrial lead is [employer], 1589, [id number]. 3. The ventricular lead is [employer], 4932, [id number] IMPRESSION: Successful dual-chamber pacemaker implant via left axillary vein. PLAN 1. Routine postop monitoring in telemetry bed. 2. Chest x-ray. 3. Followup in 2 weeks. Job#: [id number] TYLRE
[2017-07-01] MEDS: ATORVASTATIN 40 MG TAB PO SCH (21:27)
[2017-07-02] VITALS (8 sets, daily range): BP systolic 152–180; BP diastolic 67–75
[2017-07-02] MEDS: LEVOTHYROXINE SODIUM 100 MCG TAB PO SCH (06:00)
[2017-07-02] MEDS: TRAMADOL HCL 50 MG TAB PO PRN ×3 (06:04→22:01)
[2017-07-02 07:30] LABS: INR 1.13; PROTHROMBIN TIME 13.6 seconds (11.9-14.5)
[2017-07-02] MEDS: INSULIN LISPRO 100 UNIT/1 ML 3ML VIAL SQ SCH ×4 (07:30→22:00)
[2017-07-02] MEDS: VALSARTAN 80 MG TAB PO SCH ×2 (10:46→17:18)
[2017-07-02] MEDS: DOXYCYCLINE HYCLATE TABLET 100 MG TAB PO SCH ×2 (10:46→17:18)
[2017-07-02] MEDS: FUROSEMIDE 40 MG TAB PO SCH (10:46)
[2017-07-02] MEDS: CARVEDILOL 12.5 MG TAB PO SCH ×2 (10:46→17:18)
[2017-07-02] MEDS: AMIODARONE HCL 200 MG TAB PO SCH (10:46)
[2017-07-02] MEDS: CEFTRIAXONE SOD 1 GM VIAL IV SCH (17:00)
[2017-07-02] MEDS: WARFARIN SOD 2.5 MG TAB PO SCH (17:18)
[2017-07-02] MEDS: MORPHINE SULFATE 2 MG/ML SYR IV PRN (19:50)
[2017-07-02] MEDS: ATORVASTATIN 40 MG TAB PO SCH (22:00)
[2017-07-03] VITALS (8 sets, daily range): BP systolic 143–184; BP diastolic 62–77
[2017-07-03] MEDS: MORPHINE SULFATE 2 MG/ML SYR IV PRN ×3 (00:14→10:31)
[2017-07-03] MEDS: INSULIN LISPRO 100 UNIT/1 ML 3ML VIAL SQ SCH ×4 (07:30→20:18)
[2017-07-03] MEDS: LEVOTHYROXINE SODIUM 100 MCG TAB PO SCH (08:03)
[2017-07-03 08:14] LABS: BASOPHILS # (AUTO) 0.1 (0.0-0.1); BASOPHILS % 0.7 % (0.0-1.0); EOSINOPHILS # (AUTO) 0.3 (0.0-0.4); EOSINOPHILS % 3.9 % (0.0-6.0); HEMATOCRIT 26.3 % (34.2-44.1); HEMOGLOBIN 8.5 g/dL (12.0-16.0); LYMPHOCYTES # (AUTO) 1.5 (1.0-3.2); MEAN CORPUSCULAR HEMOGLOBIN 29.7 pg (28-32); MEAN CORPUSCULAR HGB CONC 32.3 g/dL (31-35); MONOCYTES # (AUTO) 0.8 (0.2-0.8); NEUTROPHILS # (AUTO) 4.9 (2.1-6.9); NEUTROPHILS % 63.9 % (38.7-80.0); PLATELET COUNT 311 x10e3/uL (140-360); RED BLOOD COUNT 2.86 x10e6/uL (3.6-5.1); RED CELL DISTRIBUTION WIDTH 16.5 % (11.7-14.4)
[2017-07-03 08:26] LABS: INR 1.14; PROTHROMBIN TIME 13.7 seconds (11.9-14.5)
[2017-07-03 08:34] LABS: ANION GAP 13.7 mmol/L (8-16); CALCIUM 8.3 mg/dL (8.4-10.2); CREATININE, SERUM 0.97 mg/dL (0.57-1.11); POTASSIUM 3.7 mmol/L (3.5-5.1)
[2017-07-03] MEDS: CARVEDILOL 12.5 MG TAB PO SCH ×2 (08:58→17:17)
[2017-07-03] MEDS: AMIODARONE HCL 200 MG TAB PO SCH (08:58)
[2017-07-03] MEDS: FUROSEMIDE 40 MG TAB PO SCH (08:59)
[2017-07-03] MEDS: VALSARTAN 80 MG TAB PO SCH ×2 (08:59→17:17)
[2017-07-03] MEDS: DOXYCYCLINE HYCLATE TABLET 100 MG TAB PO SCH ×2 (08:59→17:18)
[2017-07-03] MEDS: TRAMADOL HCL 50 MG TAB PO PRN ×2 (13:00→20:10)
--- NOTE | 2017-07-03 13:23 | Discharge Summary ---
PRIMARY CARE DOCTOR: Dr. Bakari Lee. 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 SECONDARY DIAGNOSIS 1. Deconditioned. 2. Uncontrolled hypertension. 3. Diastolic congestive heart failure. 4. Presumed right-sided acute pyelonephritis due to Escherichia coli, status post intravenous Rocephin. 5. Presumed pneumonia, status post doxycycline. 6. Paroxysmal atrial fibrillation, on amiodarone and Coumadin. 7. Stage 3 chronic kidney disease due to diabetes, stable. CONSULTANTS 1. Dr. Graff, cardiology. 2. Dr. Reddy, EP senior lead project manager. PROCEDURES/STUDIES PERFORMED 1. Permanent pacemaker. 2. Echocardiogram. HISTORY: Per H\T\P. HOSPITAL COURSE: Patient was evaluated for her syncope. This was thought to be due to tachybrady syndrome. Permanent pacemaker was placed without difficulties. Patient will continue her doxycycline until July 08, 2017. Doxycycline was also used for her pneumonia. Patient also is status post a full course of IV Rocephin for her presumed pyelonephritis. [facility] will be going to a [facility] for skilled [facility] therapy today. CONDITION ON DISCHARGE: Stable. DISCHARGE MEDICATIONS: Please see medication reconciliation form. Patient was seen and examined today. It took 32 minutes total to discharge this patient. SAURABH BYERS M.D. Job#: [id number] EV cc:BAKARI LEE MD
[2017-07-03] MEDS: NIFEDIPINE CR 30 MG TAB PO SCH (14:03)
[2017-07-03] MEDS: WARFARIN SOD 2.5 MG TAB PO SCH (17:17)
[2017-07-03] MEDS: ATORVASTATIN 40 MG TAB PO SCH (20:10)
[2017-07-04] VITALS (7 sets, daily range): BP systolic 127–161; BP diastolic 58–69
[2017-07-04] MEDS: TRAMADOL HCL 50 MG TAB PO PRN ×2 (02:21→08:47)
[2017-07-04] MEDS: INSULIN LISPRO 100 UNIT/1 ML 3ML VIAL SQ SCH ×4 (07:30→20:51)
[2017-07-04] MEDS: LEVOTHYROXINE SODIUM 100 MCG TAB PO SCH (08:46)
[2017-07-04] MEDS: AMIODARONE HCL 200 MG TAB PO SCH (08:47)
[2017-07-04] MEDS: NIFEDIPINE CR 30 MG TAB PO SCH (08:47)
[2017-07-04] MEDS: VALSARTAN 80 MG TAB PO SCH ×2 (08:47→16:54)
[2017-07-04] MEDS: CARVEDILOL 12.5 MG TAB PO SCH ×2 (08:47→16:54)
[2017-07-04] MEDS: DOXYCYCLINE HYCLATE TABLET 100 MG TAB PO SCH ×2 (08:47→16:54)
[2017-07-04] MEDS: FUROSEMIDE 40 MG TAB PO SCH (08:47)
[2017-07-04] MEDS: HYDROCODONE/APAP 5MG-325MG TAB PO PRN ×2 (12:56→20:52)
--- NOTE | 2017-07-04 13:55 | Progress Note ---
DATE: July 04, 2017 INTERNAL MEDICINE PROGRESS NOTE COVERING FOR: Dr. Delgado. SUBJECTIVE: Mrs. Yoon was seen and examined at bedside. She sites some difficulty with persistent back pain. Patient sites the pain is better on stooping forward and worse on extending her back. Patient is spontaneously voiding right now. Patient is having some arrangement being made regarding discharge planning. So far, patient continues under treatment for pyelonephritis at this time. She is having no further fall, although she is needing minimal assist to facilitate. REVIEW OF SYSTEMS: No GI bleeding. No double vision. OBJECTIVE VITAL SIGNS: Afebrile. Vital signs noted per electronic record. GENERAL: No acute distress, alert and calm, mildly anxious. HEENT: Normocephalic, atraumatic with some mild bilateral ecchymosis on various aspects of her face. NECK: Supple. Throat midline. CARDIOVASCULAR: S1 and S2. No murmurs, rubs, or gallops. LUNGS: Bilateral air entry, limited, decreased breath sounds at the bases. ABDOMEN: Soft, nontender, and obese. EXTREMITIES: No clubbing and no cyanosis. There is a 1+ hard edema, slight redness to what looks like stasis changes. INTEGUMENT: No open ulcers, no other generalized rashes. LABS: No new updates except for glucose 142 to 191. IMPRESSION AND PLAN 1. 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 2. Deconditioning. 3. Back pain, possible spinal stenosis. 4. Uncontrolled hypertension. 5. Diastolic congestive heart failure. 6. Urinary tract infection Escherichia coli, possible pyelonephritis versus cystitis. 7. Minimal abnormal chest x-ray, possible pneumonia versus overload. 8. Paroxysmal atrial fibrillation. 9. Diabetes. Continue antibiotics for now. We have put in for nursing home facility evaluation. Patient needs rehab for her back definitely. Continue some pain medicines, although keep lower doses. Continue cardiac medications. We will follow along closely. Her lungs, we will get another x-ray evaluation in the morning. Consideration fluid pneumonitis, possible amiodarone effect or other. She will need continued outpatient evaluation of her lungs. Job#: [id number] MAHNAZ
--- NOTE | 2017-07-04 15:44 | Diagnostic Imaging Report ---
Examination: Single AP view of the chest. COMPARISON: Single AP chest 07/01/2017 INDICATION: Status post fall, history of CHF IMPRESSION: 1. Lines and Tubes: Stable left upper chest multilead cardiac device. 2. Stable enlargement of the cardiac silhouette, with central pulmonary venous congestion and mild bilateral perihilar interstitial edema. No alveolar opacities, consolidation or effusion. Findings likely represent mildly decompensated CHF. 3. No acute bony abnormalities. 4. Signed by: Dr. Jarocho Valle M.D. on 07/04/2017 3:40 PM
[2017-07-04] MEDS: WARFARIN SOD 2.5 MG TAB PO SCH (16:54)
[2017-07-04] MEDS: ATORVASTATIN 40 MG TAB PO SCH (20:51)
[2017-07-05] VITALS (8 sets, daily range): BP systolic 123–161; BP diastolic 58–70
[2017-07-05] MEDS: TRAMADOL HCL 50 MG TAB PO PRN (02:45)
[2017-07-05 07:19] LABS: INR 1.19; PROTHROMBIN TIME 14.2 seconds (11.9-14.5)
[2017-07-05] MEDS: INSULIN LISPRO 100 UNIT/1 ML 3ML VIAL SQ SCH ×4 (07:30→20:48)
[2017-07-05] MEDS: CARVEDILOL 12.5 MG TAB PO SCH ×2 (08:41→17:04)
[2017-07-05] MEDS: NIFEDIPINE CR 30 MG TAB PO SCH (08:41)
[2017-07-05] MEDS: LEVOTHYROXINE SODIUM 100 MCG TAB PO SCH (08:41)
[2017-07-05] MEDS: VALSARTAN 80 MG TAB PO SCH ×2 (08:41→17:04)
[2017-07-05] MEDS: FUROSEMIDE 40 MG TAB PO SCH (08:41)
[2017-07-05] MEDS: DOXYCYCLINE HYCLATE TABLET 100 MG TAB PO SCH ×2 (08:41→17:03)
[2017-07-05] MEDS: AMIODARONE HCL 200 MG TAB PO SCH (08:41)
[2017-07-05] MEDS: HYDROCODONE/APAP 5MG-325MG TAB PO PRN ×2 (09:29→22:32)
[2017-07-05] MEDS ORDERED: BISACODYL 5 MG TAB EC PO PRN (13:15)
--- NOTE | 2017-07-05 14:03 | Progress Note ---
DATE: July 05, 2017 INTERNAL MEDICINE PROGRESS NOTE This is coverage for Dr. Delgado. SUBJECTIVE: Ms. Yoon was seen and examined at bedside. She continues with no new complaints. Actually, the pain is better controlled today on the slight increase of pain medicine. The [place] was able to hold her pain up better. She denies bowel movements for few days now. At this time, we await word from the insurance as well as the patient will be needing planning for discharge soon. REVIEW OF SYSTEMS: No chest pain. No diarrhea. OBJECTIVE: VITAL SIGNS: Afebrile. Vital signs noted per electronic record. GENERAL: No acute distress, alert and calm. HEENT: Normocephalic, atraumatic. NECK: Supple. Throat midline. LUNGS: Bilateral air entry, few rhonchi. CARDIOVASCULAR: S1 and S2. No murmurs, rubs, or gallops. ABDOMEN: Soft, nontender. EXTREMITIES: No clubbing and no cyanosis. There is 1+ edema. INTEGUMENT: No rash, although with chronic stasis changes that look mostly old for now. IMPRESSION AND PLAN 1. 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 2. Deconditioning/weakness. 3. Back pain, possible spinal stenosis based on symptoms. 4. Uncontrolled hypertension. 5. Diastolic congestive heart failure. 6. Urinary tract infection, Escherichia coli. 7. Abnormal chest x-ray, pneumonitis versus edema. Consideration does include amiodarone lung. 8. Paroxysmal atrial fibrillation. 9. Diabetes. Continue follow up at this time. Blood pressure is actually higher today than it was yesterday. We will follow up and consider adjusting medicines if needed. Fair acceptable glucose control, so we will continue the same. Glucoses have been in the 100s. Stool softener will be added. Patient will notify us if she wants a laxative. We will follow along closely. Follow up with the insurance and begin discharge planning. Job#: [id number] VAS
[2017-07-05] MEDS: DOCUSATE SODIUM 100 MG CAP PO SCH (17:03)
[2017-07-05] MEDS: WARFARIN SOD 5 MG TAB PO SCH (17:03)
[2017-07-05] MEDS: ATORVASTATIN 40 MG TAB PO SCH (20:49)
[2017-07-06 00:47] VITALS: BP 122/58
[2017-07-06 04:00] VITALS: BP 124/56
[2017-07-06 05:01] VITALS: BP 122/58
[2017-07-06] MEDS: LEVOTHYROXINE SODIUM 100 MCG TAB PO SCH (07:30)
[2017-07-06 07:55] LABS: BASOPHILS # (AUTO) 0.1 (0.0-0.1); EOSINOPHILS # (AUTO) 0.3 (0.0-0.4); EOSINOPHILS % 3.9 % (0.0-6.0); HEMATOCRIT 27.3 % (34.2-44.1); HEMOGLOBIN 8.8 g/dL (12.0-16.0); LYMPHOCYTES # (AUTO) 1.4 (1.0-3.2); LYMPHOCYTES % 20.1 % (18.0-39.1); MEAN CORPUSCULAR HGB CONC 32.2 g/dL (31-35); MEAN CORPUSCULAR VOLUME 90.1 fL (81-99); MONOCYTES # (AUTO) 0.7 (0.2-0.8); NEUTROPHILS # (AUTO) 4.4 (2.1-6.9); NEUTROPHILS % 64.6 % (38.7-80.0); PLATELET COUNT 360 x10e3/uL (140-360); RED BLOOD COUNT 3.03 x10e6/uL (3.6-5.1); RED CELL DISTRIBUTION WIDTH 16.2 % (11.7-14.4)
[2017-07-06 08:06] LABS: INR 1.28
[2017-07-06 08:10] LABS: ALBUMIN 2.6 g/dL (3.5-5.0); ALBUMIN/GLOBULIN RATIO 0.8 (0.8-2.0); ANION GAP 12.2 mmol/L (8-16); CALCIUM 8.2 mg/dL (8.4-10.2); CREATININE, SERUM 1.2 mg/dL (0.57-1.11); POTASSIUM 3.2 mmol/L (3.5-5.1)
[2017-07-06 08:48] VITALS: BP 152/66
[2017-07-06] MEDS: AMIODARONE HCL 200 MG TAB PO SCH (09:21)
[2017-07-06] MEDS: FUROSEMIDE 40 MG TAB PO SCH (09:21)
[2017-07-06] MEDS: CARVEDILOL 12.5 MG TAB PO SCH ×2 (09:21→16:03)
[2017-07-06] MEDS: DOCUSATE SODIUM 100 MG CAP PO SCH ×2 (09:21→16:02)
[2017-07-06] MEDS: VALSARTAN 80 MG TAB PO SCH ×2 (09:21→16:03)
[2017-07-06] MEDS: NIFEDIPINE CR 30 MG TAB PO SCH (09:22)
[2017-07-06] MEDS: DOXYCYCLINE HYCLATE TABLET 100 MG TAB PO SCH ×2 (09:22→16:03)
[2017-07-06] MEDS: INSULIN LISPRO 100 UNIT/1 ML 3ML VIAL SQ SCH ×3 (09:22→16:59)
[2017-07-06] MEDS ORDERED: POTASSIUM CHLORIDE 20 MEQ TAB CR PO ONE (09:45)
[2017-07-06] MEDS: TRAMADOL HCL 50 MG TAB PO PRN ×3 (10:00→17:09)
[2017-07-06 12:00] VITALS: BP 149/65
[2017-07-06 15:42] VITALS: BP 149/65
[2017-07-06] MEDS: WARFARIN SOD 5 MG TAB PO SCH (16:03)
== END 2017-07-06 18:49 | DRG 242 ==
LOC: ER 07:25 → ERHOLD 09:26 → IMCU 10:32 → OBSVTOIN 06-30 13:09 → MED/SURG 07-01 22:40
PROVIDERS: ADMIT Internal Medicine; ATTEND Internal Medicine
PROC: 0JH606Z Insertion of Pacemaker, Dual Chamber into Chest Subcutaneous Tissue and Fascia, Open Approach (ICD-10-PCS; principal; 2017-07-01)
PROC: 02HL3JZ Insertion of Pacemaker Lead into Left Ventricle, Percutaneous Approach (ICD-10-PCS; 2017-07-01)
PROC: 02H63JZ Insertion of Pacemaker Lead into Right Atrium, Percutaneous Approach (ICD-10-PCS; 2017-07-01)
DX: I49.5 Sick sinus syndrome (principal); I50.23 Acute on chronic systolic (congestive) heart failure; J18.9 Pneumonia, unspecified organism; E11.42 Type 2 diabetes mellitus with diabetic polyneuropathy; E11.22 Type 2 diabetes mellitus with diabetic chronic kidney disease; E11.649 Type 2 diabetes mellitus with hypoglycemia without coma; I13.0 Hypertensive heart and chronic kidney disease with heart failure and stage 1 through stage 4 chronic kidney disease, or unspecified chronic kidney disease; S80.01XA Contusion of right knee, initial encounter; D64.9 Anemia, unspecified; I50.33 Acute on chronic diastolic (congestive) heart failure; N30.01 Acute cystitis with hematuria; M84.48XA Pathological fracture, other site, initial encounter for fracture; R55 Syncope and collapse; E11.65 Type 2 diabetes mellitus with hyperglycemia; Z87.891 Personal history of nicotine dependence; I48.0 Paroxysmal atrial fibrillation; Z79.01 Long term (current) use of anticoagulants; E03.9 Hypothyroidism, unspecified; E66.9 Obesity, unspecified; I25.10 Atherosclerotic heart disease of native coronary artery without angina pectoris; B96.20 Unspecified Escherichia coli [E. coli] as the cause of diseases classified elsewhere; Z88.0 Allergy status to penicillin; Z88.5 Allergy status to narcotic agent; N18.3 Chronic kidney disease, stage 3 (moderate)
CPT/HCPCS: 36415; 70450; 71045; 71250; 72125; 74176; 77001; 77002; 80048; 80053; 80061; 81001; 82550; 82553; 82948; 83690; 83735; 83880; 84100; 84443; 84484; 85025; 85610; 85730; 86850; 86900; 87040; 87086; 87186; 93005; 93306; 93880; 97139; 99284; C1898; G0378; J0456; J0696; J1940; J2001; J2250; J2270; J2405; J3370; J7030; J7040; J7799